=== PATIENT | male | born 1965 | race Caucasian/White ===

== ENCOUNTER 2018-04-08 16:45 | Emergency (ER) | payer SELFPAY ==
[~2018-04-08] VITALS: Ht 182.9 cm; Wt 78.0 kg
[2018-04-08] MEDS ORDERED: IV NORMAL SALINE 1,000ML 1,000 ML IV SCH (17:11)
[2018-04-08 17:29] LABS: FECAL OB PT NEGATIVE (NEG)
[2018-04-08] MEDS ORDERED: FAMOTIDINE 20 MG TABLET PO ONE (17:40)
[2018-04-08 17:51] LABS: BASO % 0 % (0-3); EOS % 0 % (0-3); HEMATOCRIT 40.6 % (39.0-53.0); LYMPH # 1.3 x10^3/uL (1.0-4.8); LYMPH % 16 % (24-48); MEAN CORPUSCULAR HEMOGLOBIN 30 pg (25-35); MEAN CORPUSCULAR HGB CONC 34 g/dL (31-37); MEAN CORPUSCULAR VOLUME 86 fL (79-100); MONO # 0.5 x10^3/uL (0.0-1.1); MONO % 6 % (0-9); NEUT % 77 % (31-73); PLATELET COUNT 187 x10^3/uL (140-400); RED BLOOD COUNT 4.73 x10^6/uL (4.30-5.70); RED CELL DISTRIBUTION WIDTH 12.7 % (11.5-14.5); WHITE BLOOD COUNT 7.9 x10^3/uL (4.0-11.0)
--- NOTE | 2018-04-08 17:59 | PHYS DOC ---
Past History Past Medical History: GI Bleed, Migraines Past Surgical History: Appendectomy, Cholecystectomy, Other Alcohol Use: Rarely Drug Use: None Adult General Chief Complaint Chief Complaint: ABDOMINAL PAIN HPI HPI Patient is a 52 year old male who presents with complaining of abdominal pain and black stools. Patient states he had 2 black stool today like his previous episodes of GI bleed and thinks he had another GI bleed. Patient states he did not have any nausea or vomiting but had mild abdominal pain. Patient complaining of generalized weakness and dizziness. Patient states he had 4 or 5 episodes of GI bleed previously with blood transfusion the patient does not take any prescribed and tested at this time and denies drinking alcohol or using drugs. Patient is originally from [place] and visiting this area for a short time. Review of Systems Review of Systems Constitutional: Denies fever or chills [] Eyes: Denies change in visual acuity, redness, or eye pain [] HENT: Denies nasal congestion or sore throat [] Respiratory: Denies cough or shortness of breath [] Cardiovascular: No additional information not addressed in HPI [] GI: Denies nausea, vomiting, diarrhea, reports abdominal pain and black stool : Denies dysuria or hematuria [] Musculoskeletal: Denies back pain or joint pain [] Integument: Denies rash or skin lesions [] Neurologic: Denies headache, focal weakness or sensory changes [] Endocrine: Denies polyuria or polydipsia [] All other systems were reviewed and found to be within normal limits, except as documented in this note. Current Medications Current Medications Current Medications Medications (Trade) Dose Ordered Sig/Ed Start Time Stop Time Status Last Admin Dose Admin Famotidine (Pepcid) 20 mg 1X ONCE 04/08/18 17:40 04/08/18 17:41 DC 04/08/18 17:40 20 MG Sodium Chloride 1,000 ml @ 1,000 mls/hr Q1H 04/08/18 17:11 04/08/18 18:10 04/08/18 17:41 1,000 MLS/HR Allergies Allergies Allergies Coded Allergies Type Severity Reaction Last Updated Verified ethinyl estradiol Allergy Mild 04/08/18 Yes iron Allergy Mild 04/08/18 Yes levonorgestrel Allergy Mild 04/08/18 Yes prochlorperazine Allergy Mild 04/08/18 Yes pyridostigmine Allergy Mild 04/08/18 Yes sumatriptan Allergy Mild 04/08/18 Yes Physical Exam Physical Exam Constitutional: Well developed, well nourished, mild distress, non-toxic appearance. [] HENT: Normocephalic, atraumatic, oropharynx moist, no oral exudates, nose normal. [] Eyes: PERRLA, EOMI, conjunctiva normal, no discharge. [] Neck: Normal range of motion, no tenderness, supple, no stridor. [] Cardiovascular:Heart rate regular rhythm, no murmur [] Lungs & Thorax: Bilateral breath sounds clear to auscultation [] Abdomen: Bowel sounds normal, soft, no tenderness, no masses, no pulsatile masses. 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 [] Back: No tenderness, no CVA tenderness. [] Extremities: No tenderness, no cyanosis, no clubbing, ROM intact, no edema. [] Neurologic: Alert and oriented X 3, normal motor function, normal sensory function, no focal deficits noted. [] Psychologic: Affect normal, judgement normal, mood normal. [] Current Patient Data Vital Signs Vital Signs Date Time Temp Pulse Resp B/P (MAP) Pulse Ox O2 Delivery O2 Flow Rate FiO2 04/08/18 17:04 98.2 86 18 95 Room Air Lab Results Laboratory Tests Test 04/08/18 17:08 Stool Occult Blood Negative (NEG) EKG EKG [] Radiology/Procedures Radiology/Procedures [] Course & Med Decision Making Course & Med Decision Making Pertinent Labs are pending. Evaluation of patient in ER showed 52-year-old male patient with history of GI bleed complaining of 2 episodes of black stool today and concerns for having GI bleeding because of dizziness and weakness. Patient had unremarkable physical exam and orthostatic vitals. Patient had negative guaiac test. Labs is pending. Patient care transferred to Dr. Schneider at 1800. Gisel Disclaimer Gisel Disclaimer This electronic medical record was generated, in whole or in part, using a voice recognition dictation system. Departure Departure: Impression: Primary Impression: Abdominal pain Referrals: NON,STAFF (PCP) GAB DOMINIQUE MD Apr 08, 2018 17:59
[2018-04-08 18:05] LABS: ALBUMIN 3.9 g/dL (3.4-5.0); ALBUMIN/GLOBULIN RATIO 1.3 (1.0-1.7); CALCIUM 8.9 mg/dL (8.5-10.1); CREATININE 0.8 mg/dL (0.7-1.3); GFR 100.7; POTASSIUM 3.8 mmol/L (3.5-5.1); TOTAL BILIRUBIN 0.4 mg/dL (0.2-1.0); TOTAL PROTEIN 6.9 g/dL (6.4-8.2)
[2018-04-08] MEDS ORDERED: LORazepam 2 MG/ML VIAL IV ONE (18:45)
[2018-04-08] MEDS ORDERED: ONDANSETRON PF 4 MG/2 ML VIAL. IV ONE ×2 (18:45→20:00)
[2018-04-08] MEDS ORDERED: IOHEXOL 300 MG/ML 75 ML VIAL. IV ONE (19:00)
--- NOTE | 2018-04-08 19:35 | RAD ---
CT Abdomen and Pelvis With Intravenous Contrast: History: Left lower quadrant pain. Comparison: None. Technique: After administration of intravenous contrast, 75 mL Omnipaque-300, CT of the abdomen and pelvis was performed. Exposure: One or more of the following individualized dose reduction techniques were utilized for this examination: 1. Automated exposure control 2. Adjustment of the mA and/or kV according to patient size 3. Use of iterative reconstruction technique Findings: Evaluation of enteric structures may be limited by lack of oral contrast. Liver demonstrates several subcentimeter low-attenuation lesions, not adequately characterized on this examination. Spleen, pancreas, and bilateral adrenal glands are unremarkable. Gallbladder is absent. Bilateral kidneys enhance symmetrically. Inferior pole of right kidney demonstrates 4 mm nonobstructive nephrolith. Interpolar region of the left kidney demonstrates 2 mm nonobstructive nephrolith. No bowel obstruction or inflammation is identified. Appendix is not seen, compatible provided history of appendectomy. Scattered colonic diverticulosis is noted, but no diverticulitis appreciated. No free air or free fluid is seen in the abdomen or pelvis. Impression: 1. No acute abnormality identified in the abdomen or pelvis. Electronically signed by: Idris Smith MD (04/08/2018 7:32 PM) [facility]
[2018-04-08 19:43] VITALS: BP 121/76
--- NOTE | 2018-04-08 19:44 | PHYS DOC ---
Past History Past Medical History: GI Bleed, Migraines Past Surgical History: Appendectomy, Cholecystectomy, Other Alcohol Use: Rarely Drug Use: None Adult General Chief Complaint Chief Complaint: ABDOMINAL PAIN HPI HPI 52-year-old male with abdominal pain. See my colleague's note for further details Review of Systems Review of Systems Constitutional: Denies fever or chills [] Eyes: Denies change in visual acuity, redness, or eye pain [] HENT: Denies nasal congestion or sore throat [] Respiratory: Denies cough or shortness of breath [] Cardiovascular: No additional information not addressed in HPI [] GI: LLQ abdominal pain [] : Denies dysuria or hematuria [] Musculoskeletal: Denies back pain or joint pain [] Integument: Denies rash or skin lesions [] Neurologic: Denies headache, focal weakness or sensory changes [] Endocrine: Denies polyuria or polydipsia [] All other systems were reviewed and found to be within normal limits, except as documented in this note. Current Medications Current Medications Current Medications Medications (Trade) Dose Ordered Sig/Ed Start Time Stop Time Status Last Admin Dose Admin Famotidine (Pepcid) 20 mg 1X ONCE 04/08/18 17:40 04/08/18 17:41 DC 04/08/18 17:40 20 MG Iohexol (Omnipaque 300 Mg/ml) 75 ml 1X ONCE 04/08/18 19:00 04/08/18 19:01 DC Lorazepam (Ativan) 1 mg 1X ONCE 04/08/18 18:45 04/08/18 18:46 DC 04/08/18 18:52 1 MG Ondansetron HCl (Zofran) 4 mg 1X ONCE 04/08/18 18:45 04/08/18 18:46 DC 04/08/18 18:42 4 MG Sodium Chloride 1,000 ml @ 1,000 mls/hr Q1H 04/08/18 17:11 04/08/18 18:10 DC 04/08/18 17:41 1,000 MLS/HR Allergies Allergies Allergies Coded Allergies Type Severity Reaction Last Updated Verified ethinyl estradiol Allergy Mild 04/08/18 Yes iron Allergy Mild 04/08/18 Yes levonorgestrel Allergy Mild 04/08/18 Yes prochlorperazine Allergy Mild 04/08/18 Yes pyridostigmine Allergy Mild 04/08/18 Yes sumatriptan Allergy Mild 04/08/18 Yes Physical Exam Physical Exam Constitutional: Well developed, well nourished, no acute distress, non-toxic appearance. [] HENT: Normocephalic, atraumatic, bilateral external ears normal, oropharynx moist, no oral exudates, nose normal. [] Eyes: PERRLA, EOMI, conjunctiva normal, no discharge. [] Neck: Normal range of motion, no tenderness, supple, no stridor. [] Cardiovascular:Heart rate regular rhythm, no murmur [] Lungs & Thorax: Bilateral breath sounds clear to auscultation [] Abdomen: Left lower quadrant tenderness with guarding, no rebound[] Skin: Warm, dry, no erythema, no rash. [] Back: No tenderness, no CVA tenderness. [] Extremities: No tenderness, no cyanosis, no clubbing, ROM intact, no edema. [] Neurologic: Alert and oriented X 3, normal motor function, normal sensory function, no focal deficits noted. [] Psychologic: Affect normal, judgement normal, mood normal. [] Current Patient Data Vital Signs Vital Signs Date Time Temp Pulse Resp B/P (MAP) Pulse Ox O2 Delivery O2 Flow Rate FiO2 04/08/18 18:38 67 18 137/99 (112) 99 Room Air 04/08/18 17:04 98.2 Lab Results Laboratory Tests Test 04/08/18 17:08 04/08/18 17:35 Stool Occult Blood Negative (NEG) White Blood Count 7.9 x10^3/uL (4.0-11.0) Red Blood Count 4.73 x10^6/uL (4.30-5.70) Hemoglobin 14.0 g/dL (13.0-17.5) Hematocrit 40.6 % (39.0-53.0) Mean Corpuscular Volume 86 fL (79-100) Mean Corpuscular Hemoglobin 30 pg (25-35) Mean Corpuscular Hemoglobin Concent 34 g/dL (31-37) Red Cell Distribution Width 12.7 % (11.5-14.5) Platelet Count 187 x10^3/uL (140-400) Neutrophils (%) (Auto) 77 % (31-73) H Lymphocytes (%) (Auto) 16 % (24-48) L Monocytes (%) (Auto) 6 % (0-9) Eosinophils (%) (Auto) 0 % (0-3) Basophils (%) (Auto) 0 % (0-3) Neutrophils # (Auto) 6.0 x10^3uL (1.8-7.7) Lymphocytes # (Auto) 1.3 x10^3/uL (1.0-4.8) Monocytes # (Auto) 0.5 x10^3/uL (0.0-1.1) Eosinophils # (Auto) 0.0 x10^3/uL (0.0-0.7) Basophils # (Auto) 0.0 x10^3/uL (0.0-0.2) Prothrombin Time 10.3 SEC (9.4-11.4) Prothrombin Time INR 1.0 (0.9-1.1) Sodium Level 142 mmol/L (136-145) Potassium Level 3.8 mmol/L (3.5-5.1) Chloride Level 105 mmol/L (98-107) Carbon Dioxide Level 26 mmol/L (21-32) Anion Gap 11 (6-14) Blood Urea Nitrogen 11 mg/dL (8-26) Creatinine 0.8 mg/dL (0.7-1.3) Estimated GFR (Cockcroft-Gault) 100.7 BUN/Creatinine Ratio 14 (6-20) Glucose Level 95 mg/dL (70-99) Calcium Level 8.9 mg/dL (8.5-10.1) Total Bilirubin 0.4 mg/dL (0.2-1.0) Aspartate Amino Transferase (AST) 13 U/L (15-37) L Alanine Aminotransferase (ALT) 28 U/L (16-63) Alkaline Phosphatase 49 U/L (46-116) Total Protein 6.9 g/dL (6.4-8.2) Albumin 3.9 g/dL (3.4-5.0) Albumin/Globulin Ratio 1.3 (1.0-1.7) EKG EKG [] Radiology/Procedures Radiology/Procedures [] Impressions: CT Abdomen and Pelvis With Intravenous Contrast: History: Left lower quadrant pain. Comparison: None. Technique: After administration of intravenous contrast, 75 mL Omnipaque-300, CT of the abdomen and pelvis was performed. Exposure: One or more of the following individualized dose reduction techniques were utilized for this examination: 1. Automated exposure control 2. Adjustment of the mA and/or kV according to patient size 3. Use of iterative reconstruction technique Findings: Evaluation of enteric structures may be limited by lack of oral contrast. Liver demonstrates several subcentimeter low-attenuation lesions, not adequately characterized on this examination. Spleen, pancreas, and bilateral adrenal glands are unremarkable. Gallbladder is absent. Bilateral kidneys enhance symmetrically. Inferior pole of right kidney demonstrates 4 mm nonobstructive nephrolith. Interpolar region of the left kidney demonstrates 2 mm nonobstructive nephrolith. No bowel obstruction or inflammation is identified. Appendix is not seen, compatible provided history of appendectomy. Scattered colonic diverticulosis is noted, but no diverticulitis appreciated. No free air or free fluid is seen in the abdomen or pelvis. Impression: 1. No acute abnormality identified in the abdomen or pelvis. Electronically signed by: Idris Smith MD (04/08/2018 7:32 PM) [facility] DICTATED AND SIGNED BY: IDRIS SMITH MD DATE: 04/08/181927 CC: [place] HSU DO; JOSE,STAFF Course & Med Decision Making Course & Med Decision Making Pertinent Labs and Imaging studies reviewed. (See chart for details) The patient's labs are unremarkable. He is not anemic. His Hemoccult was negative. My reexamination the patient he had significant left lower quadrant pain. I offered to do a CT scan to rule out diverticulitis or another acute abdominal process. The patient agreed. CT scan is negative for acute findings. It is possible he is just coming down with a viral GI illness. He is stable for discharge at this time. [] Dragon Disclaimer Dragon Disclaimer This electronic medical record was generated, in whole or in part, using a voice recognition dictation system. Departure Departure: Impression: Primary Impression: Abdominal pain Referrals: JOSE,STAFF (PCP) J[place] HSU DO Apr 08, 2018 19:44
[2018-04-08] MEDS ORDERED: ONDA4TAB10 SL (19:54)
[2018-04-08] MEDS ORDERED: HYDROmorphone PF 2 MG/ML VIAL IV ONE (20:00)
[2018-04-08] MEDS ORDERED: HEPARIN PF 500 UNIT/5 ML DISP.SYRIN. IV ONE (20:15)
== END 2018-04-08 20:19 | disposition home or self-care (01) ==
LOC: ER 16:45
DX: R10.32 Left lower quadrant pain (principal); R53.1 Weakness; R42 Dizziness and giddiness; K92.1 Melena; G43.909 Migraine, unspecified, not intractable, without status migrainosus; Z90.89 Acquired absence of other organs; Z90.49 Acquired absence of other specified parts of digestive tract; Z88.8 Allergy status to other drugs, medicaments and biological substances
CPT/HCPCS: 36415; 74177; 80053; 82274; 85025; 85610; 96361; 96374; 96375; 96376; 99285; J1170; J2060; J2405; Q9967; J7030

== ENCOUNTER 2018-04-11 11:56 | Emergency (ER) | payer OTHER ==
[~2018-04-11] VITALS: Ht 188 cm; Wt 78.0 kg
[~2018-04-11 11:56] MED LIST: ONDA4TAB10 SL
[2018-04-11] MEDS ORDERED: methylPREDNISolone SOD SUCC PF 125 MG/2 ML VIAL. IV ONE (13:00)
[2018-04-11] MEDS ORDERED: ONDANSETRON PF 4 MG/2 ML VIAL. IV ONE (13:00)
[2018-04-11] MEDS ORDERED: KETOROLAC 30 MG/ML VIAL. IV ONE (13:00)
[2018-04-11 13:15] LABS: BASO % 0 % (0-3); EOS % 0 % (0-3); HEMATOCRIT 39.7 % (39.0-53.0); HEMOGLOBIN 13.8 g/dL (13.0-17.5); LYMPH # 1.1 x10^3/uL (1.0-4.8); LYMPH % 14 % (24-48); MEAN CORPUSCULAR HEMOGLOBIN 30 pg (25-35); MEAN CORPUSCULAR HGB CONC 35 g/dL (31-37); MEAN CORPUSCULAR VOLUME 85 fL (79-100); MONO # 0.4 x10^3/uL (0.0-1.1); MONO % 5 % (0-9); NEUT # 5.9 x10^3uL (1.8-7.7); NEUT % 80 % (31-73); PLATELET COUNT 185 x10^3/uL (140-400); RED BLOOD COUNT 4.67 x10^6/uL (4.30-5.70); RED CELL DISTRIBUTION WIDTH 13.1 % (11.5-14.5); WHITE BLOOD COUNT 7.3 x10^3/uL (4.0-11.0)
[2018-04-11 13:28] LABS: ALBUMIN 4.1 g/dL (3.4-5.0); ALBUMIN/GLOBULIN RATIO 1.6 (1.0-1.7); CALCIUM 9.5 mg/dL (8.5-10.1); CREATININE 0.9 mg/dL (0.7-1.3); GFR 87.9; POTASSIUM 4.1 mmol/L (3.5-5.1); TOTAL BILIRUBIN 0.5 mg/dL (0.2-1.0); TOTAL PROTEIN 6.7 g/dL (6.4-8.2)
[2018-04-11] MEDS ORDERED: DIHYDROERGOTAMINE 1 MG/ML AMPUL. IVP ONE (14:00)
[2018-04-11] MEDS ORDERED: ONDA4TAB10 SL (14:33)
--- NOTE | 2018-04-11 14:33 | PHYS DOC ---
Past History Past Medical History: Migraines Past Surgical History: Appendectomy, Cholecystectomy, Knee Replacement, Other Alcohol Use: None Drug Use: None Adult General Chief Complaint Chief Complaint: HEADACHE HPI HPI Patient is a 52 year old male who presents with complaining of headache. Patient states he had history of migraine headache and nasal surgery and taking methadone 10 mg 3 times a day but his headache getting force for the last 3 or 4 days as a constant headache with nausea without vomiting, fever and chills, neck pain, focal neuro deficit. Patient is visiting this area from [place] and was seen in this emergency room a few days ago with complaining of abdominal pain. Review of Systems Review of Systems Constitutional: Denies fever or chills [] Eyes: Denies change in visual acuity, redness, or eye pain [] HENT: Denies nasal congestion or sore throat [] Respiratory: Denies cough or shortness of breath [] Cardiovascular: No additional information not addressed in HPI [] GI: Denies abdominal pain, nausea, vomiting, bloody stools or diarrhea [] : Denies dysuria or hematuria [] Musculoskeletal: Denies back pain or joint pain [] Integument: Denies rash or skin lesions [] Neurologic: Denies headache, focal weakness or sensory changes [] Endocrine: Denies polyuria or polydipsia [] All other systems were reviewed and found to be within normal limits, except as documented in this note. Current Medications Current Medications Current Medications Medications (Trade) Dose Ordered Sig/Ed Start Time Stop Time Status Last Admin Dose Admin Dihydroergotamine Mesylate (Dhe) 1 mg 1X ONCE 04/11/18 14:00 04/11/18 14:01 DC 04/11/18 14:00 1 MG Ketorolac Tromethamine (Toradol 30mg Vial) 30 mg 1X ONCE 04/11/18 13:00 04/11/18 13:01 DC 04/11/18 12:53 30 MG Methylprednisolone Sodium Succinate (SOLU-Medrol 125MG VIAL) 125 mg 1X ONCE 04/11/18 13:00 04/11/18 13:01 DC 04/11/18 12:53 125 MG Ondansetron HCl (Zofran Odt) 4 mg 1X ONCE 04/11/18 14:30 04/11/18 14:31 UNV Ondansetron HCl (Zofran) 4 mg 1X ONCE 04/11/18 13:00 04/11/18 13:01 DC 04/11/18 12:52 4 MG Allergies Allergies Allergies Coded Allergies Type Severity Reaction Last Updated Verified ethinyl estradiol Allergy Mild 04/08/18 Yes iron Allergy Mild 04/08/18 Yes levonorgestrel Allergy Mild 04/08/18 Yes prochlorperazine Allergy Mild 04/08/18 Yes pyridostigmine Allergy Mild 04/08/18 Yes sumatriptan Allergy Mild 04/08/18 Yes Physical Exam Physical Exam Constitutional: Well developed, well nourished, no acute distress, non-toxic appearance. [] HENT: Normocephalic, atraumatic, bilateral external ears normal, oropharynx moist, no oral exudates, nose normal. [] Eyes: PERRLA, EOMI, conjunctiva normal, no discharge. [] Neck: Normal range of motion, no tenderness, supple, no stridor. [] Cardiovascular:Heart rate regular rhythm, no murmur [] Lungs & Thorax: Bilateral breath sounds clear to auscultation [] Abdomen: Bowel sounds normal, soft, no tenderness, no masses, no pulsatile masses. [] Skin: Warm, dry, no erythema, no rash. [] Back: No tenderness, no CVA tenderness. [] Extremities: No tenderness, no cyanosis, no clubbing, ROM intact, no edema. [] Neurologic: Alert and oriented X 3, normal motor function, normal sensory function, no focal deficits noted. [] Psychologic: Affect anxious, judgement normal, mood normal. [] Current Patient Data Vital Signs Vital Signs Date Time Temp Pulse Resp B/P (MAP) Pulse Ox O2 Delivery O2 Flow Rate FiO2 04/11/18 12:01 98.1 59 20 100 Room Air Lab Results Laboratory Tests Test 04/11/18 12:48 White Blood Count 7.3 x10^3/uL (4.0-11.0) Red Blood Count 4.67 x10^6/uL (4.30-5.70) Hemoglobin 13.8 g/dL (13.0-17.5) Hematocrit 39.7 % (39.0-53.0) Mean Corpuscular Volume 85 fL (79-100) Mean Corpuscular Hemoglobin 30 pg (25-35) Mean Corpuscular Hemoglobin Concent 35 g/dL (31-37) Red Cell Distribution Width 13.1 % (11.5-14.5) Platelet Count 185 x10^3/uL (140-400) Neutrophils (%) (Auto) 80 % (31-73) H Lymphocytes (%) (Auto) 14 % (24-48) L Monocytes (%) (Auto) 5 % (0-9) Eosinophils (%) (Auto) 0 % (0-3) Basophils (%) (Auto) 0 % (0-3) Neutrophils # (Auto) 5.9 x10^3uL (1.8-7.7) Lymphocytes # (Auto) 1.1 x10^3/uL (1.0-4.8) Monocytes # (Auto) 0.4 x10^3/uL (0.0-1.1) Eosinophils # (Auto) 0.0 x10^3/uL (0.0-0.7) Basophils # (Auto) 0.0 x10^3/uL (0.0-0.2) Sodium Level 141 mmol/L (136-145) Potassium Level 4.1 mmol/L (3.5-5.1) Chloride Level 104 mmol/L (98-107) Carbon Dioxide Level 28 mmol/L (21-32) Anion Gap 9 (6-14) Blood Urea Nitrogen 13 mg/dL (8-26) Creatinine 0.9 mg/dL (0.7-1.3) Estimated GFR (Cockcroft-Gault) 87.9 BUN/Creatinine Ratio 14 (6-20) Glucose Level 108 mg/dL (70-99) H Calcium Level 9.5 mg/dL (8.5-10.1) Total Bilirubin 0.5 mg/dL (0.2-1.0) Aspartate Amino Transferase (AST) 18 U/L (15-37) Alanine Aminotransferase (ALT) 29 U/L (16-63) Alkaline Phosphatase 53 U/L (46-116) Total Protein 6.7 g/dL (6.4-8.2) Albumin 4.1 g/dL (3.4-5.0) Albumin/Globulin Ratio 1.6 (1.0-1.7) EKG EKG [] Radiology/Procedures Radiology/Procedures [] Course & Med Decision Making Course & Med Decision Making Pertinent Labs reviewed. (See chart for details) Evaluation of patient in ER showed 52-year-old male patient with complaining of migraine headache that did not get better with methadone at home. Patient had unremarkable physical exam and labs. Patient had drug-seeking behavior and asking for Dilaudid. Patient instructed to follow with his neurologist and out of town physician for chronic migraine headache. Dragon Disclaimer Dragon Disclaimer This electronic medical record was generated, in whole or in part, using a voice recognition dictation system. Departure Departure: Impression: Primary Impression: Headache Disposition: HOME, SELF-CARE (at 1431) Condition: STABLE Referrals: NON,STAFF (PCP) Patient Instructions: General Headache Without Cause Additional Instructions: Drink plenty of liquids Follow-up with your primary care physician in 3-5 days Return to ER if not getting better Continue home medication Scripts Ondansetron (ZOFRAN ODT) 4 Mg Tab.rapdis 1 TAB SL Q8HRS, #15 TAB Prov: GAB DOMINIQUE MD 04/11/18 GAB DOMINIQUE MD Apr 11, 2018 14:33
[2018-04-11 14:35] VITALS: BP 144/92
[2018-04-11] MEDS ORDERED: ONDANSETRON ODT 4 MG TAB.RAPDIS PO ONE (15:00)
== END 2018-04-11 14:52 | disposition home or self-care (01) ==
LOC: ER 11:56
DX: R51 Headache (principal); G43.909 Migraine, unspecified, not intractable, without status migrainosus; Z88.8 Allergy status to other drugs, medicaments and biological substances
CPT/HCPCS: 36415; 80053; 85025; 96374; 96375; 99284; J1110; J1885; J2405; J2930; Q0162